=== PATIENT | female | born 1950 | race Caucasian/White ===

== ENCOUNTER → 2018-03-07 | Outpatient (CLI) | payer MEDICARE ==
--- NOTE | 2018-03-07 16:44 | BD ---
EXAMINATION TYPE: Axial Bone Density DATE OF EXAM: 03/07/2018 COMPARISON: NONE CLINICAL HISTORY: Height: 65 IN Weight: 231 LBS FRAX RISK QUESTIONS: Secondary Osteoporosis: 2. Hyperthyroidism: YES RISK FACTORS HISTORY OF: Surgery to Hip(right): YES When: 2009 Family History of Osteoporosis: YES MOTHER Active: YES Diet low in dairy products/other sources of calcium: YES Postmenopausal woman: YES MEDICATIONS: Thyroid Medications: YES Which medication: Levothyroxine How Lon+ YEARS Additional Medications: LEVOTHYROXINE, ACID REFLUX MEDS, ATORVASTATIN, ESOMOPRAZOLE MAGNESIUM, COQ10, ASPIRIN EXAM MEASUREMENTS: Bone mineral densitometry was performed using the [employer] System. Bone mineral density as measured about the Lumbar spine is: ----- L1-L4(G/cm2): 1.250 T Score Values are as follows: ----- L2: 0.3 ----- L3: 0.7 ----- L4: 0.9 ----- L1-L4: 0.6 Bone mineral density BASELINE PT HAD RT HIP REPLACEMENT IN 2009 Bone mineral density about the L hip (g/cm2): 0.878 T Score values are as follows: -----L Neck: -1.2 -----L Total: -0.9 Bone mineral density BASELINE IMPRESSION: Osteopenia (T Score between -2.5 and -1). There is slightly increased risk of fracture and the patient may be considered for treatment. Re-Screen 2-5 years. NOTE: T-SCORE=SD OF THE YOUNG ADULT MEAN.
--- NOTE | 2018-03-10 13:37 | MM ---
Reason for exam: screening (asymptomatic). Last mammogram was performed 21 years and 7 months ago. History: Patient is postmenopausal. MG 3D Screening Mammo W/Cad Bilateral CC and MLO view(s) were taken. Prior study comparison: July 29, 1996, bilateral screening mammogram. September 24, 1991, screening mammogram. There are scattered fibroglandular densities. No suspicious abnormality. ASSESSMENT: Benign, BI-RAD 2 RECOMMENDATION: Routine screening mammogram of both breasts in 1 year.
== END ==
LOC: RADMAMWWP 15:11
PROVIDERS: ATTEND Family Medicine
DX: Z12.31 Encounter for screening mammogram for malignant neoplasm of breast (principal); M85.80 Other specified disorders of bone density and structure, unspecified site; Z78.0 Asymptomatic menopausal state
CPT/HCPCS: 77063; 77067; 77080

== ENCOUNTER → 2024-03-12 | Outpatient (CLI) | payer MEDICARE ==
[2024-03-12 15:00] LABS: Basophils # (A) 0.07 X 10*3/uL (0.00-0.10); Basophils % (A) 1.3 %; Eosinophils # (A) 0.12 X 10*3/uL (0.04-0.35); Eosinophils % (A) 2.2 %; HCT 44.6 % (37.2-46.3); HGB 14.1 g/dL (12.0-15.0); Lymphocytes # (A) 0.75 X 10*3/uL (0.90-5.00); Lymphocytes % (A) 13.5 %; MCH 30.3 pg (27.0-32.0); MCHC 31.6 g/dL (32.0-37.0); MCV 95.7 FL (80.0-97.0); Mean Platelet Volume 12.5 FL (9.5-12.2); Monocytes # (A) 0.37 X 10*3/uL (0.20-1.00); Monocytes % (A) 6.6 %; NRBC Per 100 WBC 0 X 10*3/uL (0.00-0.01); Neutrophils # (A) 4.24 X 10*3/uL (1.80-7.70); Platelet Count 294 X 10*3/uL (140-440); RBC 4.66 X 10*6/uL (4.10-5.20); RDW 13.9 % (11.5-14.5); WBC 5.57 X 10*3/uL (4.50-10.00)
[2024-03-12 15:24] LABS: ALT 17 U/L (8-44); AST 23 U/L (13-35); Albumin 4.2 g/dL (3.8-4.9); Albumin/Globulin Ratio 1.62 Ratio (1.60-3.17); Alkaline Phosphatase 63 U/L (41-126); BUN/Creat Ratio 17.75 Ratio (12.00-20.00); Blood Urea Nitrogen 14.2 mg/dL (9.0-27.0); Calcium 9.4 mg/dL (8.7-10.3); Carbon Dioxide 25.4 mmol/L (21.6-31.8); Chloride 105 mmol/L (96-109); Chol/HDL Ratio 2.38 Ratio; Globulin 2.6 g/dL (1.6-3.3); Glucose 106 mg/dL (70-110); LDL Cholesterol,Calculated 92.6 mg/dL (0.0-131.0); Potassium 5.2 mmol/L (3.5-5.5); Sodium 140 mmol/L (135-145); Total Bilirubin 0.7 mg/dL (0.3-1.2); Total Protein 6.8 g/dL (6.2-8.2); VLDL Calculation 15.08 mg/dL (5.00-40.00)
[2024-03-12 15:25] LABS: T4, Free (Free Thyroxine) 1.41 ng/dL (0.80-1.80)
== END | disposition home or self-care (01) ==
LOC: LABWHC1 10:12
PROVIDERS: ATTEND Family Medicine
DX: Z00.00 Encounter for general adult medical examination without abnormal findings (principal); E03.9 Hypothyroidism, unspecified; E78.2 Mixed hyperlipidemia; Z79.899 Other long term (current) drug therapy
CPT/HCPCS: 36415; 80053; 80061; 84439; 84443; 85025